=== PATIENT | female | born 1940 | race Caucasian/White ===

== ENCOUNTER → 2023-09-21 16:43 | Outpatient (REF) | payer MEDICARE, OTHER, SELFPAY | LOC: HWWDC 16:43 | PROVIDERS: ATTENDING PHYSICIAN Obstetrics & Gynecology Obstetrics; FAMILY PHYSICIAN Family Medicine | DX: Z12.31 Encounter for screening mammogram for malignant neoplasm of breast (principal) | CPT/HCPCS: 77063; 77067 ==

== ENCOUNTER 2025-04-25 14:27 | Emergency (ER) | payer MEDICARE, OTHER, SELFPAY ==
[2025-04-25 14:29] VITALS: BP 148/96
--- NOTE | 2025-04-25 16:38 | ED.GENMED ---
History of Present Illness
General
Chief Complaint: Fall
Source: patient
Exam Limitations: none
Time Seen by Provider: 04/25/25 16:05
Nursing documentation reviewed up to this point in time: agreed with
History of Present Illness
History of Present Illness:
Patient to ED after fall at home. She states she was vacuuming and got caught in the cord, fell back and hit back of head on tile floor. No LOC. Sustained a small laceration and hematoma to posterior scalp. Brought to ED by family for eval
Past History
Past History
ED Past Medical History: Hypothyroidism and Other (On HRTs for menaopause)
Social History
Personal:
Living: with family
Employment: Retired
Review of Systems
Review of Systems
Allergies reviewed?: Yes
All Other Systems: ROS reviewed and negative except as documented in HPI and ROS
Constitutional: Reports no symptoms
EENT: Reports no symptoms
Respiratory: Reports no symptoms
Cardiac: Reports no symptoms
ABD/GI: Reports no symptoms
: Reports no symptoms
Musculoskeletal: Reports no symptoms
Skin: Reports other (laceration to posterior scalp)
Neurological: Reports no symptoms
Psychiatric: Reports no symptoms
Phy Exam
General Physical Exam
General Presentation: well appearing and no apparent distress
General age: appears stated age
General Skin: warm and dry
General Habitus: normal
General Mental: alert
Eye Exam
Eye Exam: PERRL, EOMI and conjunctiva normal
Neurological Exam
Neurological Exam: alert, oriented x3, CN II-XII intact, no motor deficits, no sensory deficits, speech normal and normal gait
Musculoskeletal Exam
Musculoskeletal Exam: full ROM (ambulating without difficulty. No neck pain) and neuro vasc intact
Skin Exam
Skin Exam: normal color, warm/dry and no rash
Psychiatric Exam
Psychiatric Exam: normal mood/affect
Course
Orders/Labs/Results
Orders:
Orders
04/25/25 16:31
CT Head W/o Iv Contrast Urgent
Comment:
Reason For Exam: trauma
Vital Signs
Initial and Last Documented VS:
Initial Vital Signs
Temp Pulse Resp BP Pulse Ox
98.0 F 114 20 148/96 98
04/25/25 14:04/25/25 14:04/25/25 14:04/25/25 14:04/25/25 14:29
Last Documented Vital Signs
Temp Pulse Resp BP Pulse Ox
98.0 F 114 20 148/96 98
04/25/25 14:04/25/25 14:04/25/25 14:04/25/25 14:04/25/25 16:43
*Radiology
Radiology exam reviewed: radiology read reviewed
*Pulse Oximetry
SaO2: 98
Oxygen Mode of Delivery: Room air
Patient hypoxic: no
*Critical Care Note
Total Time (30-74mins, 75-104mins- exclusive of procedures): Not Applicable
Update Note
Update Note:
Patient to ED after fall at home. Hit posterior head on tile floor. No LOC. Smll laceration and hematoma noted. Laceration cleansed with NSS, skin glue applied. Neurologically at baseline. CT head neg for acute finding. Will discharge home,
followup with PCP. Given instructions on s/s to return to ED and she is agreeable to plan.
ED Attending Note
-
Portions of this chart may have been created with voice recognition software.� Occasional wrong word or��sound alike� substitutions may have occurred due to the inherent limitations of voice recognition software.
Discharge Plan
Departure
Patient Disposition: Home (Routine Discharge)
Date of Disposition: 04/25/25
Time of Disposition: 17:01
Patient with high blood pressure during this ER visit?: No
Condition: Good
Covid-19: Not Applicable
Discharge Problem:
Head injury, Laceration of scalp
Instructions: Laceration Repair With Glue (DC), Head Injury in Adults (DC), Contusion (DC)
Referrals:
René Shields MD [Family Provider, [facility]] - Follow up in 2-3 days
Interventions
Interventions:
*Risk Screen - Suicide Last Done: 04/25/25 14:29
*General Assessment Last Done: 04/25/25 14:29
Discharge Date and Time
Print Language: KHMER
Skin Exam
Laceration
Posterior Scalp:
Length in cm: 1
Orientation: C shaped
Type of Laceration: simple
Any active bleeding?: no active bleeding
Distal skin color and temperature: normal-warm & good color
Normal distal neurovascular exam: Yes
Range of motion: full
[2025-04-25 17:12] VITALS: BP 121/76
== END 2025-04-25 17:13 | disposition home or self-care (01) ==
LOC: EMR 14:27
PROVIDERS: EMERGENCY PHYSICIAN Emergency Medicine; FAMILY PHYSICIAN Family Medicine
DX: S01.01XA Laceration without foreign body of scalp, initial encounter (principal); W18.39XA Other fall on same level, initial encounter; E03.9 Hypothyroidism, unspecified
CPT/HCPCS: 12001; 99284; 70450